=== PATIENT | male | born 1985 | race Caucasian/White ===

== ENCOUNTER 2021-03-27 18:58 | Emergency (ER) | payer OTHER ==
[~2021-03-27] VITALS: Ht 177.8 cm; Wt 108.9 kg
[2021-03-27] MEDS ORDERED: ONDANSETRON HCL INJ 2MG/ML 2ML 2 MG/ML VIAL IV STA (20:11)
[2021-03-27] MEDS ORDERED: IBUPROFEN 600 MG TAB PO STA (20:11)
[2021-03-27] MEDS ORDERED: SODIUM CHLORIDE 0.9% 1000ML 1,000 ML IV ONE (20:15)
[2021-03-27] MEDS ORDERED: SODIUM CHLORIDE 0.9% 1000ML 1,000 ML ONE (20:23)
[2021-03-27] MEDS ORDERED: IBUPROFEN 600 MG TAB ONE (20:23)
[2021-03-27] MEDS ORDERED: ONDANSETRON HCL INJ 2MG/ML 2ML 2 MG/ML VIAL ONE (20:23)
[2021-03-27] MEDS ORDERED: CEFTRIAXONE SOD 1 GM/50 ML BAG IV ONE (21:30)
[2021-03-27] MEDS ORDERED: AZITHROMYCIN 250 MG TAB PO ONE (21:30)
[2021-03-27] MEDS ORDERED: DEXAMETHASONE SOD PHOS INJ 4 MG/ML VIAL IV ONE (21:45)
[2021-03-27] MEDS ORDERED: CEFDINIR300 MG PO (22:37)
[2021-03-27] MEDS ORDERED: DEXAMETHASONE6 MG PO (22:37)
[2021-03-27] MEDS ORDERED: AZITHROMYCIN250 MG PO (22:38)
[2021-03-27] MEDS ORDERED: VENTOLIN HFA18 GM INH (22:39)
[2021-03-27] MEDS ORDERED: JANUMET 50-1,01 EACH PO (22:40)
[2021-03-27] MEDS ORDERED: GLIMEPIRIDE4 MG PO (22:41)
== END 2021-03-27 23:00 | disposition home or self-care (01) ==
LOC: FSED 19:14
DX: U07.1 COVID-19 (principal); J18.9 Pneumonia, unspecified organism; E11.65 Type 2 diabetes mellitus with hyperglycemia; J98.01 Acute bronchospasm; R05 Cough
CPT/HCPCS: 71046; 80053; 81003; 85025; 99284; J2405; J7030